=== PATIENT | female | born 1990 | race Caucasian/White ===

== ENCOUNTER 2025-03-17 00:59 | Emergency (ER) | payer MEDICAID ==
[~2025-03-17] VITALS: Ht 165.1 cm; Wt 91.0 kg
[2025-03-17 01:03] VITALS: O2SAT 98
[2025-03-17] MEDS: ACETAMINOPHEN 325MG TABLET PO ONE (03:01)
[2025-03-17 03:03] VITALS: TEMP 36.7
[2025-03-17 03:07] LABS: BASOPHILS % 0.2 % (0.0-2.0); EOSINOPHILS % 0.2 % (0.0-5.0); HEMATOCRIT. 35.1 % (36.0-48.0); HEMOGLOBIN. 11.4 g/dL (12.0-16.0); LYMPHOCYTES % 14.3 % (20.0-50.0); MEAN PLATELET VOLUME 9.3 fl (7.4-10.4); MONOCYTES % 5.5 % (2.0-8.0); NEUTROPHILS % 79.8 % (40.0-76.0); PLATELET 225 x1000/uL (130-400); RED BLOOD CELL COUNT 3.95 mill/uL (4.2-5.4); RED CELL DISTRIBUTION WIDTH 14.8 % (11.6-14.6)
[2025-03-17 03:19] LABS: CREATININE 0.5 mg/dL (0.6-1.0); UREA NITROGEN BLOOD 9 mg/dL (9-23)
[2025-03-17 03:33] LABS: B-HCG QUANTITATIVE 3143 mIU/mL (<6)
[2025-03-17] MEDS: SODIUM CHLORIDE 0.9% 1,000 ML IV ONE (03:43)
[2025-03-17] MEDS ORDERED: ACET-2708 MT (05:19)
[2025-03-17 06:55] VITALS: BP 127/83; PULSE 86; RESP 11; O2SAT 100
== END 2025-03-17 07:10 | disposition home or self-care (01) ==
LOC: ER 00:59
DX: N93.9 Abnormal uterine and vaginal bleeding, unspecified (principal); Z00.00 Encounter for general adult medical examination without abnormal findings; R10.2 Pelvic and perineal pain
CPT/HCPCS: 99285; 96360; 76856; 80048; 84702; 85025; 86850; 86900; 86901; 36415; J7030